=== PATIENT | female | born 1995 | race Caucasian/White ===

== ENCOUNTER 2022-03-23 15:01 | Emergency (ER) | payer OTHER ==
[~2022-03-23] VITALS: Ht 167.6 cm; Wt 104.0 kg
[2022-03-23 15:03] VITALS: BP 108/88
== END 2022-03-23 16:09 ==
LOC: ER 15:01
DX: S49.91XA Unspecified injury of right shoulder and upper arm, initial encounter (principal); X58.XXXA Exposure to other specified factors, initial encounter; Y93.89 Activity, other specified; Y92.89 Other specified places as the place of occurrence of the external cause; Y99.8 Other external cause status
CPT/HCPCS: 73030; 99283